=== PATIENT | female | born 2000 | race Caucasian/White ===

== ENCOUNTER 2024-05-18 06:29 | Emergency (ER) | payer OTHER, SELFPAY ==
[2024-05-18 06:34] VITALS: BP 133/87; PULSE 93; RESP 16; TEMP 36.7; O2SAT 100; BMI 28.1
--- NOTE | 2024-05-18 06:45 | ED_ITS ---
HPI - General Adult General Chief complaint: General Medical Stated complaint: sore throat Time Seen by Provider: 05/18/24 06:42 Source: patient Mode of arrival: ambulatory Limitations: no limitations History of Present Illness ED Provider: Ashley Lpóez HPI narrative: 24 yo female presenting to the ER for evaluation of sore throat, intermittent for the last 10 days. She feels like something is stuck in her throat. She states when it 1st started she went to a urgent Care in her town, got prescribed antibiotics. She took them for a couple of days with improvement in the pain. She states they called her back and told her her culture was negative to stop taking them. The pain came back. She reports pain with swallowing. No fevers or chills. No voice changes. No shortness a breath or difficulty breathing. MD complaint: Sore throat Onset (ago): day(s) Location: mouth and neck Severity: moderate Severity scale (1-10): 7 Quality: stabbing Pain Consistency: constant Relieving factors: medication Exacerbating factors: eating Associated symptoms: denies other symptoms Treatments prior to arrival: none Related Data Previous Rx's ?Medication ?Instructions ?Recorded amoxicillin 875 mg-potassium 1 tab PO BID #20 tabs 05/18/24 clavulanate 125 mg tablet Allergies Allergy/AdvReac Type Severity Reaction Status Date / Time No Known Allergies Allergy Verified 05/18/24 06:36 [No Known Allergies*] Review of Systems Review of Systems: Yes all other systems are reviewed and are negative [facility] Social History Social History Advance Directives: No Advance Directives Information Provided: No Physical Exam ED Vital Signs: Vital Signs - 24 hr 05/18/24 06:34 Temperature 98.0 F Pulse Rate 93 Respiratory Rate 16 Blood Pressure 133/87 Pulse Oximetry 100 Oxygen Delivery Method Room Air BMI result Body Mass Index 28.1 Appearance: Alert. Oriented X3. No acute distress. Head: normocephalic, atraumatic. Eyes: Pupils equal, round and reactive to light. ENT: Pharynx with moist mucous membranes, diffuse erythema of the posterior oropharynx, erythema on the hard palate. No tonsillar swelling or exudate. Midline. Neck: Normal inspection. Neck supple. CVS: Normal heart rate and rhythm. Pulses normal. Respiratory: No respiratory distress. Breath sounds normal. Abdomen: Soft and nontender. +BS x4 Skin: Skin warm and dry. Normal skin color. Normal skin turgor. No rashes. Extremities: No lower extremity edema. No joint swelling. Neuro/psych: Oriented X 3. Grossly normal, nonfocal Medications Administered Discontinued Medications Generic Name Dose Route Start Last Admin Trade Name Kaylyn PRN Reason Stop Dose Admin Ibuprofen 600 mg 05/18/24 06:58 05/18/24 07:23 Ibuprofen 600 Mg Tablet PO 05/18/24 06:59 600 mg ONCE ONE Administration Lidocaine HCl 15 ml 05/18/24 06:58 05/18/24 07:23 Lidocaine Hcl Viscous 2 % 15 Ml Solution MUCOUS MEM 05/18/24 06:59 15 ml ONCE ONE Administration Medical Decision Making Medical Decision Making [facility] Narrative: 24-year-old female presents to the ER for evaluation of sore throat. Exam and clinical presentation are consistent with strep pharyngitis. She tested positive for strep throat today. Will treat with 10 days of Augmentin, she was previously on amoxicillin, stopped taking it. Stable for discharge home. Patient counseled on diagnosis and management as well as return precautions Differential Diagnosis Differential Diagnoses: The differential diagnosis associated with the pres entation includes strep, covid, flu, rsv, other viral syndrome, bronchitis, pneumonia, no evidence of peritonsillar abcsess or retropharyngeal abscess Lab Data [facility] Lab Attestation statement: I reviewed the patient's lab results. Labs: Lab Results 05/18/24 Range/Units 07:05 S. pyogenes GrpA AMBROCIO Positive A (Negative) Prescription Management I considered prescription management with: Pain Medication and Antibiotic Critical Care Time Critical Care Time Critical Care Time: No Discharge Plan Discharge Clinical Impression: Acute streptococcal pharyngitis Patient Disposition: Home, Self-Care Instructions: Strep Throat (DC) Additional Instructions: You tested positive for Strep throat today Take the prescribed antibiotics as directed, complete the entire course and do not miss any doses Use warm salt water gargles 3 times per day. Recommend [id number] Chloraseptic spray or Cepacol lozenges to help with your sore throat Rest and drink plenty of fluids. Take Tylenol and Motrin as needed for pain. If you develop new or worsening symptoms call 911 or come back to the ER for further evaluation. Prescriptions: New amoxicillin-pot clavulanate 875-125 mg tablet 1 tab PO BID Qty: 20 0RF Referrals: Susie Manning MD [Primary Care Provider] - Stand Alone Forms: Work/School Release Print Language: Belgian
[2024-05-18 07:18] LABS: IDNOW Serial# 08D9AD1C; Strep A Nucleic Acid Positive (Negative)
[2024-05-18] MEDS: Ibuprofen 600 MG TABLET PO (07:23)
[2024-05-18] MEDS: Lidocaine HCl Viscous 2 % 15 ML SOLUTION MUCOUS MEM (07:23)
--- NOTE | 2024-05-18 07:23 | PC.NURSE ---
swabs obtained and sent, medicated per the JAN. resting quietly in room, call love within reach
[2024-05-18 07:47] VITALS: BP 133/87; PULSE 93; RESP 16; TEMP 36.7; O2SAT 100
[2024-05-18 07:56] LABS: Influenza A PCR NEGATIVE (Negative); Influenza B PCR NEGATIVE (Negative); Resp Syncy Virus RNA Qual PCR NEGATIVE (Negative); SARS COV2 PCR INHOUSE NEGATIVE (Negative)
== END 2024-05-18 07:47 | disposition home or self-care (01) ==
PROVIDERS: Emergency Provider Emergency Medicine; PCP Internal Medicine
DX: J02.0 Streptococcal pharyngitis (principal); M54.2 Cervicalgia; Z03.818 Encounter for observation for suspected exposure to other biological agents ruled out
CPT/HCPCS: 0241U; 87651; 99283

== ENCOUNTER 2024-08-17 07:25 | Outpatient (AMB) | payer OTHER, SELFPAY ==
[2024-08-17 08:02] VITALS: BP 120/72; PULSE 92; O2SAT 98; BMI 26.6
--- NOTE | 2024-08-17 08:02 | A.OFFPC_ITS ---
Vital Signs 08/17/24 08:02 Height 5 ft 1 in Weight 141 lb BMI 26.6 BP 120/72 Blood Pressure Location Rt brachial Position Sitting Pulse 92 Pulse Oximetry (%) 98 Oxygen Delivery Method Room Air Intake Visit Reasons: wrist liner, requests physical Allergies No Known Allergies [No Known Allergies*] Allergy (Verified 08/17/24 08:03) Medication List - Last Reconciled 08/17/24 by Susie Manning MD etonogestrel (Nexplanon) subdermal Tobacco use date assessed: 08/17/24 Dental Screening Dental Screen Date: 08/17/24 Did you have a dental visit in the last 12 months?: No Did you have a dental problem in the last 6 months where you did not have access to dental care?: No Was dental information given to patient?: Patient has dentist HPI wrist liner, requests physical HPI Details Patient presents for new patient physical. She is actually stroke chronic anxiety and depression since teenager and used to take medications and see a counselor without significant improvement. She lives with her parents and reports having a difficult interactions with her mother. Patient denies suicide ideation [facility] Social History Household Members Other:: lives with mother, works for [employer], Patient Tobacco Use Status: Never used Tobacco e-Cigarette/Vaping Use: Currently Using Cognitive needs: No Hearing needs: No Vision needs: Yes Questionnaire PHQ-9 Over the last 2 weeks, how often have you been bothered by any of the following problems? 1. Little interest or pleasure in doing things: not at all 2. Feeling down, depressed, or hopeless: several days 3. Trouble falling or staying asleep, or sleeping too much: several days 4. Feeling tired or having little energy: several days 5. Poor appetite or overeating: several days 6. Feeling bad about yourself - or that you are a failure or have let yourself or your family down: several days 7. Trouble concentrating on things, such as reading the newspaper or watching television: not at all 8. Moving or speaking so slowly that other people could have noticed. Or the opposite - being so fidgety or restless that you have been moving around a lot more than usual: not at all 9. Thoughts that you would be better off or of hurting yourself in some way: several days Total score: 6 Depression Screening Interpretation: Negative Depression Screening Done: Yes Source: Developed by Drs. Dayton Katz, India Wilburn, Fredo Castillo and colleagues, with an educational daja from [employer]. Thrive Questionnaire Date Thrive assessed: 08/17/24 I am a: Patient What is your living situation today?: I have a steady place to live Within the past 12 months, did the food you bought not last and you didn't have the money to get more?: Never true Within the past 12 months, did you worry whether your food would run out before you got money to buy more?: Never true Do you have trouble paying for medicines?: No Do you have trouble getting transportation to medical appointments?: No Do you have trouble paying your heating and electricity bill?: No Do you have trouble taking care of your child, family member or friend?: No Do you have trouble with day-to-day activities such as bathing, preparing meals, shopping, managing finances, etc.?: No Are you interested in more education?: No Please select the resources that you would like help with: None Currently or been in a relationship where the following occur: I choose not to answer THRIVE Score: 0 AUDIT C Alcohol Use Questionnaire (AUDIT-C) 1. How often do you have a drink containing alcohol?: 2-3 times a week 2. How many drinks containing alcohol do you have on a typical day when you are drinking?: 5 or 6 3. How often do you have six or more drinks on one occasion?: Weekly Total Score: 8 AMI-7 AMB Questionnaire AMI-7 Feeling nervous, anxious, or on edge: 0 = Not at all Not being able to stop or control worryin = Not at all Worrying too much about different things: 0 = Not at all Trouble relaxin = Not at all Being so restless that it is hard to sit still: 0 = Not at all Becoming easily annoyed or irritable: 0 = Not at all Feeling afraid as if something awful might happen: 0 = Not at all Total AMI-7 score (0-4 normal; 5-9 mild; 10-14 moderate; 15-21 severe): 0 Source: Developed by India ReyesW. Cosmo, Fredo Castillo and colleagues, with an educational daja from [employer]. Review of Systems Const All systems reviewed & are unremarkable except as noted in HPI and below Reports no additional complaints Eyes Reports no additional complaints ENT Reports no additional complaints Card Reports no additional complaints Resp Reports no additional complaints GI Reports no additional complaints Reports no additional complaints Neuro Reports no additional complaints Physical exam (Primary Care) Vital Signs: Last Vital Signs Pulse 92 08/17/24 08:02 BP 120/72 08/17/24 08:02 Pulse Ox 98 08/17/24 08:02 Oxygen Delivery Method Room Air 08/17/24 08:02 BMI result Body Mass Index 26.6 Tobacco/Smoking Status: Tobacco use Status Tobacco use date assessed 08/17/24 08/17/24 08:06 Patient Tobacco Use Status Never used Tobacco 08/17/24 08:16 e-Cigarette/Vaping Use Currently Using 08/17/24 08:16 PHQ-9: PHQ-9 Score PHQ-9: Total score 6 08/17/24 08:12 Depression Screening Interpretation: Negative Thrive Assessment: Date of Thrive Assessment Date Thrive assessed 08/17/24 08/17/24 08:06 Currently or been in a relationship where the following occur: I choose not to answer Const General: no acute distress HENMT Head: Yes normal to inspection Face and sinus: Yes normal facial exam Mouth: Normal oral and palatal mucosa present Throat: Yes posterior oropharynx normal Eyes General: appearance normal, both eyes and all related structures Neck Neck: Yes no lymphadenopathy and Yes supple Resp Effort & Inspection: normal respiratory effort Auscultation: clear to auscultation bilaterally Cardio Rhythm: regular rhythm Heart sounds: S1 normal heart sound present and S2 normal heart sound present GI Inspection: Yes normal to inspection Palpation (GI): Soft to palpation Percussion: Yes normal to percussion Auscultation: normal bowel sounds Assessment and Plan Assessment & Plan (1) Annual physical exam: Code(s): Z00.00 - Encounter for general adult medical examination without abnormal findings Plan: Well-balanced diet regular physical activity discussed with the patient she will return for fasting blood work. Patient is established with vp software support at [place] (2) Right ACL tear: Comment: S/P surgery 01/2023 Code(s): S83.511A - Sprain of anterior cruciate ligament of right knee, initial encounter (3) Anxiety and depression: Comment: Patient used to see psychiatrist and counselors, tried 2 different medications without effect Code(s): F41.9 - Anxiety disorder, unspecified; F32.A - Depression, unspecified Plan: Stress management and mindfulness discussed with the patient she will be referred to a counseling. Patient is not interested in medications Orders: Orders Comprehensive [place]. Panel Fast Today Z00.00 - Encounter for general adult medical examination without abnormal findings Lipid Panel Today Z00.00 - Encounter for general adult medical examination without abnormal findings Syphilis Screen Today Z00.00 - Encounter for general adult medical examination without abnormal findings CT NG by PCR Today Z00.00 - Encounter for general adult medical examination without abnormal findings Complete Blood Count Auto Diff Today Z00.00 - Encounter for general adult medical examination without abnormal findings UA w Microscopic Today Z00.00 - Encounter for general adult medical examination without abnormal findings HIV Ab/Ag Today Z00.00 - Encounter for general adult medical examination without abnormal findings Medications: Discontinued amoxicillin-pot clavulanate 875-125 mg Discontinued Reason: Patient Completed Course 1 tab PO BID 20 tabs 0RF Coding Level of Care Code New Pt Prev Care 18-39yr(51596 Diagnoses Annual physical exam Z00.00 Right ACL tear S83.511A Anxiety and depression F41.9; F32.A
== END 2024-08-17 12:15 | disposition home or self-care (01) ==
PROVIDERS: PCP Internal Medicine; Visit Provider Internal Medicine
DX: Z00.00 Encounter for general adult medical examination without abnormal findings (principal); S83.511A Sprain of anterior cruciate ligament of right knee, initial encounter; F41.9 Anxiety disorder, unspecified; F32.A Depression, unspecified

== ENCOUNTER → 2024-08-17 07:25 | Outpatient (BNVA) | payer OTHER, SELFPAY | PROVIDERS: PCP Internal Medicine; Visit Provider Internal Medicine | DX: Z00.8 Encounter for other general examination (principal) ==

== ENCOUNTER 2024-08-17 08:57 | Outpatient (REF) | payer OTHER, SELFPAY ==
[2024-08-17 10:17] LABS: MANUAL DIFF FLAG NO
[2024-08-17 10:25] LABS: Basophils Absolute Auto 0.1 X10*3/uL (0.0-0.2); Basophils Percent Auto 0.7 % (0-2); Eosinophils Absolute Auto 0.2 X10*3/uL (0.0-0.4); Eosinophils Percent Auto 1.8 % (0-4); Hemoglobin 13.1 g/dl (12.0-16.0); Imm Gran Abs Auto 0.04 X10*3/uL (0.00-0.03); Imm Gran Pct Auto 0.4 % (0.0-0.4); Lymphocytes Percent Auto 19.4 % (20-40); Mean Corpuscular HGB Conc 34.5 g/dl (31.0-35.0); Mean Corpuscular Hemoglobin 31.4 pg (27.0-33.0); Mean Corpuscular Volume 91.1 fL (80.0-98.0); Monocytes Absolute Auto 0.7 X10*3/uL (0.1-1.2); Monocytes Percent Auto 6.5 % (2-11); Neutrophils Absolute Auto 7.5 x10*3/uL (2.0-8.3); Neutrophils Percent Auto 71.2 % (45-73); Platelet Count 409 X10*3/uL (160-400); Red Blood Count 4.17 X10*6/uL (4.20-5.50); Red Cell Distribution Width 13.1 % (11.0-16.0); White Blood Count 10.5 X10*3/uL (4.8-10.8)
[2024-08-17 10:54] LABS: Appearance Urine Clear; Color Urine Yellow; Glucose Urine UA Negative (Negative); Leukocyte Esterase Urine Negative (Negative); Nitrite Urine Negative (Negative); PH 5.5 (5.0-9.0); Urine Blood Negative (Negative); Urine Ketones Negative (Negative); Urine Protein Negative (Neg-Trace)
[2024-08-17 10:57] LABS: Bacteria Urine Trace (None Seen); Hyaline Casts Urine 0-2 /LPF (0-2); RBC Urine 0-2 /HPF (0-2); WBC Urine 0-5 /HPF (0-5)
[2024-08-17 11:12] LABS: Alanine Aminotransferase 17 U/L (0-31); Albumin Level 4.3 g/dL (3.5-5.0); Alkaline Phosphatase 63 U/L (39-117); Anion Gap 11 (12-20); Aspartate Amino Transferase 20 U/L (5-31); Bilirubin Total 0.7 mg/dL (0.0-1.0); Blood Urea Nitrogen 9 mg/dL (9-16); Calcium 9.7 mg/dL (8.4-10.2); Carbon Dioxide 23 mmol/L (22-29); Chloride 109 mmol/L (96-108); Cholesterol 151 mg/dL (<200); Estimated Glomerular Filt Rate > 60; Glucose Fasting 90 mg/dL (60-99); HDL Cholesterol 64 mg/dL (>40); LDL Cholesterol Calculated 70 mg/dL (<100); Sodium 139 mmol/L (135-145); Total Protein 7.2 g/dL (6.5-8.0); Triglycerides 87 mg/dL (<150)
[2024-08-17 13:28] LABS: Syphilis Screen Nonreactive (Nonreactive)
[2024-08-17 13:35] LABS: HIV AB/AG Nonreactive (Nonreactive); HIV Num 1 0.04 S/CO (0.00-0.99)
== END 2024-08-17 08:58 | disposition home or self-care (01) ==
LOC: HO.HMGCLDS 08:57
PROVIDERS: PCP Internal Medicine; Visit Provider Internal Medicine
DX: Z00.00 Encounter for general adult medical examination without abnormal findings (principal)
CPT/HCPCS: 36415; 80053; 80061; 81001; 85025; 86780; 87389

== ENCOUNTER 2025-08-23 07:57 | Outpatient (AMB) | payer BC, SELFPAY ==
--- NOTE | 2025-08-23 08:01 | A.OFFPC_ITS ---
Vital Signs 08/23/25 08:02 Height 5 ft 1 in Weight 150 lb BMI 28.3 BP 122/82 Blood Pressure Location Lt brachial Position Sitting Respiration 16 Pulse 70 Temp 98.4 F Pulse Oximetry (%) 99 Oxygen Delivery Method Room Air Intake Visit Reasons: PE Sterile Process Coordinator Required: No Accompanied by: Aby Allergies No Known Allergies (No Known Allergies*) Allergy (Verified 08/23/25 08:01) Tobacco use date assessed: 08/23/25 Dental Screening Dental Screen Date: 08/23/25 Did you have a dental visit in the last 12 months?: No Did you have a dental problem in the last 6 months where you did not have access to dental care?: Yes HPI PE HPI Details Patient presents for physical [facility] Medical History (Updated 08/23/25 @ 09:47 by Susie Manning MD) Annual physical exam Anxiety and depression Normal pelvic exam Social History Household Members Other:: lives with mother, works for [employer], Patient Tobacco Use Status: Never used Tobacco e-Cigarette/Vaping Use: Currently Using Cognitive needs: No Hearing needs: No Vision needs: Yes Questionnaire PHQ-9 Over the last 2 weeks, how often have you been bothered by any of the following problems? 1. Little interest or pleasure in doing things: not at all 2. Feeling down, depressed, or hopeless: not at all 3. Trouble falling or staying asleep, or sleeping too much: not at all 4. Feeling tired or having little energy: not at all 5. Poor appetite or overeating: not at all 6. Feeling bad about yourself - or that you are a failure or have let yourself or your family down: not at all 7. Trouble concentrating on things, such as reading the newspaper or watching television: not at all 8. Moving or speaking so slowly that other people could have noticed. Or the opposite - being so fidgety or restless that you have been moving around a lot more than usual: not at all 9. Thoughts that you would be better off or of hurting yourself in some way: not at all Total score: 0 Depression Screening Interpretation: Negative Depression Screening Done: Yes 38825 - PHQ-9 Billing: Yes Source: Developed by Drs. Dayton Katz, India Wilburn, Fredo Castillo and colleagues, with an educational daja from [employer]. Thrive Questionnaire Date Thrive assessed: 08/17/24 I am a: Patient What is your living situation today?: I have a steady place to live Within the past 12 months, did the food you bought not last and you didn't have the money to get more?: Never true Within the past 12 months, did you worry whether your food would run out before you got money to buy more?: Never true Do you have trouble paying for medicines?: No Do you have trouble getting transportation to medical appointments?: No Do you have trouble paying your heating and electricity bill?: No Do you have trouble taking care of your child, family member or friend?: No Do you have trouble with day-to-day activities such as bathing, preparing meals, shopping, managing finances, etc.?: No Are you currently unemployed and looking for a job?: No Are you interested in more education?: No Please select the resources that you would like help with: None Currently or been in a relationship where the following occur: I choose not to answer THRIVE Score: 0 AUDIT C Alcohol Use Questionnaire (AUDIT-C) 1. How often do you have a drink containing alcohol?: 2-4 times a month 2. How many drinks containing alcohol do you have on a typical day when you are drinking?: 3 or 4 3. How often do you have six or more drinks on one occasion?: Less than monthly Total Score: 4 AMI-7 AMB Questionnaire AMI-7 Date AMI - 7 assessed: 08/23/25 Feeling nervous, anxious, or on edge: 0 = Not at all Not being able to stop or control worryin = Not at all Worrying too much about different things: 0 = Not at all Trouble relaxin = Not at all Being so restless that it is hard to sit still: 0 = Not at all Becoming easily annoyed or irritable: 0 = Not at all Feeling afraid as if something awful might happen: 0 = Not at all Total AMI-7 score (0-4 normal; 5-9 mild; 10-14 moderate; 15-21 severe): 0 Source: Developed by Drs. Dayton Katz, India Wilburn, Fredo Castillo and colleagues, with an educational daja from [employer]. AMI-7 Assessment Billing AMI-7 Assessment Tool: AMI-7 Assessment 52510 Review of Systems Const All systems reviewed & are unremarkable except as noted in HPI and below Eyes Reports no additional complaints ENT Reports no additional complaints Card Reports no additional complaints Resp Reports no additional complaints GI Reports no additional complaints Reports no additional complaints Physical exam (Primary Care) Vital Signs: Last Vital Signs Temp 98.4 F 08/23/25 08:02 Pulse 70 08/23/25 08:02 Resp 16 08/23/25 08:02 BP 122/82 08/23/25 08:02 Pulse Ox 99 08/23/25 08:02 Oxygen Delivery Method Room Air 08/23/25 08:02 BMI result Body Mass Index 28.3 Tobacco/Smoking Status: Tobacco use Status Tobacco use date assessed 08/23/25 08/23/25 08:04 Patient Tobacco Use Status Never used Tobacco 08/23/25 08:04 e-Cigarette/Vaping Use Currently Using 08/23/25 08:04 PHQ-9: PHQ-9 Score PHQ-9: Total score 0 08/23/25 08:04 Depression Screening Interpretation: Negative Thrive Assessment: Date of Thrive Assessment Date Thrive assessed 08/17/24 08/23/25 08:04 Currently or been in a relationship where the following occur: I choose not to answer Const General: no acute distress HENMT Head: Yes normal to inspection Ears: TM's normal bilaterally Face and sinus: Yes normal facial exam Throat: Yes posterior oropharynx normal Eyes General: appearance normal, both eyes and all related structures Neck Neck: Yes no lymphadenopathy and Yes supple Resp Effort & Inspection: normal respiratory effort Auscultation: clear to auscultation bilaterally Cardio Rhythm: regular rhythm Heart sounds: S1 normal heart sound present and S2 normal heart sound present GI Inspection: Yes normal to inspection Palpation (GI): Soft to palpation Percussion: Yes normal to percussion Auscultation: normal bowel sounds Coding Level of Care Code Est Pt Prev Care 18-39y(21135) Diagnoses Annual physical exam Z00.00 Anxiety and depression F41.9; F32.A Additional Codes AMI-7 Assessment Billing - AMI-7 Assessment Tool: AMI-7 Assessment 83470 ([id number]) PHQ-9 - 58579 - PHQ-9 Billing: Yes ([id number]) Assessment & Plan Assessment & Plan (1) Annual physical exam: Code(s): Z00.00 - Encounter for general adult medical examination without abnormal findings Category: Medical Plan: Well-balanced diet regular physical activity discussed with the patient. She is up-to-date with the Pap smear by obstetrics gynecology md (2) Anxiety and depression: Comment: Patient used to see psychiatrist and counselors, tried 2 different medications, in remission 08/2025 Code(s): F41.9 - Anxiety disorder, unspecified; F32.A - Depression, unspecified Category: Medical Plan: Patient is established with a counselor
[2025-08-23 08:02] VITALS: BP 122/82; PULSE 70; RESP 16; TEMP 36.9; O2SAT 99; BMI 28.3
--- OUTSIDE RECORDS SUMMARY | 2025-08-23 08:03 | XMS_ITS | Clinical Summary ---
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 Depressive disorder 06/03/2019 Immunizations Immunization Administration Dates Next Due HPV4 (Gardasil 4) 04/22/2014,08/18/2013,06/02/20 13 Hep A (pedi) 04/25/2017,04/23/2016 Hep B - 01/09/2002,2001,2001 Hib - 07/31/2002,2001,2001 IPV 04/26/2006,2001,2001 Influenza,injectable,MDCK, Prsrv Fr,Quad 021 Influenza,injectable,quad,Prsrv Fr 09/04/2018,,10/19/2015 MMR 04/26/2006,05/04/2002 Polio - 2001,2001 Tdap 08/14/2022,06/11/2012 Varicella 06/07/2011,07/31/2002 Social History Tobacco Use Types Packs/Day Years Used Date Smoking Tobacco: Never Assessed Comments No Sex and Gender Information Value Date Recorded Sex Assigned at Not on file Legal Sex Female 6:12 PM EDT Gender Identity Not on file Sexual Orientation Not on file Last Filed Vital Signs Vital Sign Reading Time Taken Comments Blood Pressure 130/77 08/14/2022 6:19 PM EDT Pulse 65 08/14/2022 6:19 PM EDT Temperature 36.5 C (97.7 F) 08/14/2022 6:19 PM EDT Respiratory Rate 16 08/14/2022 6:19 PM EDT Oxygen Saturation 97% 08/14/2022 6:19 PM EDT Inhaled Oxygen Concentration - - Weight - - Height - - Body Mass Index - - Plan of Treatment Health Maintenance Due Date Last Done Comments Hepatitis C Screening 2001 Chlamydia 2017 Pap Smear 2017 COVID-19 Vaccine ( season) 2025 Influenza (#1) 2025 12/09/2020, 03/2018, 10/17/2017, Additional history exists DTaP/Tdap/Td (3 - Td or Tdap) 08/14/2032 08/14/2022, 06/11/2012 Zoster (Shingrix) (1 of 2) 2051 06/07/2011, Hep B Completed 01/09/2002, 01/2001, 2001 Hib Completed 07/31/2002, 10/03, 2001 HPV Vaccine Completed 04/22/2014, 08/02, 06/02/2013 Hep A Completed 04/25/2017, 04/23/2016 Meningococcal ACWY Aged Out No longer eligible based on patient's age to complete this topic Pneumococcal Aged Out No longer eligi ble based on patient's age to complete this topic
--- OUTSIDE RECORDS SUMMARY | 2025-08-23 08:03 | XMS_ITS | Clinical Summary ---
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 Active Active Problems No known active problems Surgical History Surgery Date Site/Laterality Comments TYMPANOSTOMY TUBE PLACEMENT PROCEDURE: HISTORICAL PE TUBES ANTERIOR CRUCIATE LIGAMENT REPAIR 12/02/2022 - 12/01/2023 Right Medical History Medical History Date Comments Adhd DX:ADHD Anxiety with depression DX:Anxie ty with depression Deliberate self-cutting 01/12/2021 DX:Delib erate self-cutting; COMMENT: Noted 10/13/2019, R anterior thigh. Family History Medical History Relation Name Comments Other: hyperlipidemia Father Stomach cancer Maternal Grandfather Heart attack Maternal Grandmother Hypertension Mother PVCs Lung cancer Paternal Grandfather COPD Paternal Grandmother Breast cancer Neg Hx Colon cancer Neg Hx Ovarian cancer Neg Hx Relation Name Status Comments Brother Alive Father Alive Maternal Grandfather Maternal Grandmother Mother Alive Paternal Grandfather Paternal Grandmother Alive Social History Tobacco Use Types Packs/Day Years Used Date Smoking Tobacco: Every Day Smokeless Tobacco: Current Comments:Vape Alcohol Use Standard Drinks/Week Comments Yes 0 (1 standard drink = 0.6 oz pur e alcohol) Housing Instability Answer Date Recorde d Are you worried that in the next 2 months you may not have stable housing? No 03/09/2025 Food Access & Nutrition Answer Date Rec orded Do you have access to a vari ety of food including fruits and vegetables? Yes 03/09/2025 Access to Healthcare Answer Date Record ed Within the last 3 months, ho w many times did you visit the emergency department for your medical care? 0 03/09/2025 Health Literacy Answer Date Recorded How often do you need to hav e someone help you when you read instructions, pamphlets, or other written material from your doctor or pharmacy? Never 03/09/2025 Caregiver: How often do you need to have someone help you when you read instructions, pamphlets, or other written material from your doctor or pharmacy? Not on file 03/09/2025 Financial Risk Answer Date Recorded How hard is it for you to pa y for the very basics like food, housing, medical care, and air conditioning / heating? Not very hard 03/09/2025 Transportation Answer Date Recorded Has the lack of transportati on kept you from meetings, work, or from getting things needed for daily living? No Has the lack of transportati on kept you from medical appointments or from getting medications? No 03/09/2025 Social Isolation Answer Date Recorded How often do you feel lonely or isolated from th ose around you? Never 03/09/2025 Food Risk Answer Date Recorded Within the past 12 months we worried whether our food would run out before we got money to buy more. Never true 03/09/2025 Within the past 12 months th e food we bought just didn't last and we didn't have money to get more. Never true 03/09/2025 Dependent Care Answer Date Recorded Do you need help finding or paying for care for your loved ones. For example, director child development center or elderly care for an older adult? No 03/09/2025 Education Answer Date Recorded Do you think completing more education or training, like finishing a GED, going to college, or learning a trade, would be helpful for you? No 03/09/2025 Employment and Income Answer Date Recor ded During the last four weeks, have you been actively looking for work? No 03/09/2025 Living Situation Answer Date Recorded What is your living situation? 0 03/09/2025 Comments No Sex and Gender Information Value Date Recorded Sex Assigned at Not on file Legal Sex Female 11:07 AM EST Gender Identity Not on file Sexual Orientation Not on file Obstetrics History Para Term AB IAB SAB Ectopic Multiple Livin g Live Births 0 0 0 0 0 0 0 0 Last Filed Vital Signs Vital Sign Reading Time Taken Comments Blood Pressure 125/87 03/11/2025 3:35 PM EDT Pulse 85 03/11/2025 3:35 PM EDT Temperature - - Respiratory Rate 16 03/02/2025 2:09 PM EDT Oxygen Saturation - - Inhaled Oxygen Concentration - - Weight 69.5 kg (153 lb 3.2 oz) 03/11/2025 3:35 P M EDT Height 154.9 cm (5' 1 ) 03/11/2025 3:35 PM EDT Body Mass Index 28.95 03/11/2025 3:35 PM EDT Plan of Treatment Health Maintenance Due Date Last Done Comments Pneumococcal Vaccine: Pediatrics (0 to 5 Years) and At-Risk Patients (6 to 49 Years) (1 of 1 - PPSV23) 2007 2001, 2001, 2001, Additional history exists Cholesterol Screening (Lipid Panel) 10/30/2022 HIV Screening 10/30/2022 Hepatitis C Screening 10/30/2022 COVID-19 Vaccine ( season) 2025 Influenza Vaccine (#1) 2025 , 09/04/2018, 10/17/2017, Additional history exists Social Influencers of Health Screening 03/09/2026 03/09/2025 Gonorrhea/Chlamydia Screening 03/11/2026 03/11/2025 Cervical Cancer Screening: Pap Smear 03/11/2028 03/11/2025 DTaP,Tdap,and Td Vaccines (7 - Td or Tdap) 08/14/2032 08/14/2022, 06/11/2012, 07/31/2002, Additional history exists Hepatitis B Vaccines Completed 01/09/2002, 2001, 2001 HIB Vaccines Completed 07/31/2002, 07/04, 2001, Additional history exists IPV Vaccines Completed 04/26/2006, 07/04, 2001, Additional history exists MMR Vaccines Completed 04/26/2006, 05/04/2002 Varicella Vaccines Completed 06/07/2011, 07/31/2002 HPV Vaccines Completed 04/22/2014, 08/02, 06/02/2013 Hepatitis A Vaccines Completed 04/25/2017, 04/23/20 16 Meningococcal ACWY Vaccine Completed 04/25/2017, Depression Screening Completed 03/09/2025 Meningococcal B Vaccine Aged Out No l onger eligible based on patient's age to complete this topic RSV Immunization Patients Under 20 months Aged Out No longer eligible based on patient's age to complete this topic Procedures Procedure Name Priority Date/Time Associated Diagnosis Comments PAP SMEAR Routine 03/11/2025 3:54 PM EDT Encounter for annual routine gynecological examination Screening examination for STD (sexually transmitted disease) CHLAMYDIA TRACHOMATIS AND NEISSERIA GONORRHOEAE BY TMA, THINPREP Routine 03/11/2025 3:54 PM EDT Encounter for annual routine gynecological examination Screening examination for STD (sexually transmitted disease) from Last 3 Months or Most Recently Relevant to Health Maintenance Results * Chlamydia trachomatis and neisseria gonorrhoeae by tma, thinprep (03/11/2025 3:54 PM EDT) N. gonorrhoeae, RNA Probe Negative Negative LAB MICROBIOLOGY METHOD 03/15/2025 1:08 PM EDT [facility] Chlamydia, RNA Probe Negative Negative LAB MICROBIOLOGY METHOD 03/15/2025 1:08 PM EDT [facility] Brushing/Spatula Cervix uteri structure / Unknown 03/11/2025 3:54 PM EDT 03/15/2025 5:50 AM EDT Yana Alcaraz CNM LAB CYTOLOGY ORDERABLES Final R esult [facility] [address] [place] [address], [place] [phone] * Pap smear (03/11/2025 3:54 PM EDT) Interpretation Negative for intraepithelial lesion or malignancy 03/15/2025 3:34 PM EDT [facility] General Categorization Negative 03/15/2025 3:34 PM EDT [facility] Specimen Adequacy Satisfactory for evaluation, endocervical/murcia sformation zone component present 03/15/2025 3:34 PM EDT [facility] Pap Methodology Liquid Based Pap Test 03/15/2025 3:34 PM EDT [facility] Disclaimer The Pap test is a screening test which carries an inherent false negative rate. These test results should be correlated with the patient's clinical findings and history. This Pap test was processed using an automated screening system. Technical cytopathology services provided by [facility], at [address] [place] [id number] (CLIA # [id number]/Cindy Phillip MD, Heating And Refrigeration Inspector.) 03/15/2025 3:34 PM EDT [facility] Console Pap Interpretation Reported 03/15/2025 3:34 PM EDT [facility] Brushing/Spatula Cervix uteri structure / Unknown 03/11/2025 3:54 PM EDT 03/11/2025 3:54 PM EDT Yana Alcaraz CNM LAB CYTOLOGY ORDERABLES Final R esult [facility] [address] [place] [address], from Last 3 Months or Most Recently Relevant to Health Maintenance Insurance [facility] [employer] 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
== END 2025-08-23 08:29 | disposition home or self-care (01) ==
LOC: HO.HMCC 07:59
PROVIDERS: PCP Internal Medicine; Visit Provider Internal Medicine
DX: Z00.00 Encounter for general adult medical examination without abnormal findings (principal); F41.9 Anxiety disorder, unspecified; F32.A Depression, unspecified

== ENCOUNTER → 2025-08-23 07:57 | Outpatient (BNVA) | payer BC, SELFPAY | PROVIDERS: PCP Internal Medicine; Visit Provider Internal Medicine | DX: Z00.00 Encounter for general adult medical examination without abnormal findings (principal); F41.9 Anxiety disorder, unspecified; F32.A Depression, unspecified | CPT/HCPCS: 96127 ==